=== PATIENT | male | born 1995 | race Caucasian/White ===

== ENCOUNTER 2017-09-21 09:15 | Emergency (ER) | payer BC, OTHER ==
[~2017-09-21] VITALS: Ht 180.3 cm; Wt 71.8 kg
[2017-09-21] MEDS ORDERED: ONDANSETRON 4MG/2ML VIAL (J2405) IV ONE (10:00)
[2017-09-21] MEDS ORDERED: NS 1,000 ML IV ONE (10:00)
[2017-09-21 12:03] LABS: CONTROL LINE MONO INT CTR LINE PRESENT
[2017-09-21] MEDS ORDERED: ONDA4TAB6 PO (12:08)
[2017-09-21 12:28] VITALS: BP 111/87
== END 2017-09-21 12:31 | disposition home or self-care (01) ==
LOC: M ED 09:15
DX: J06.9 Acute upper respiratory infection, unspecified (principal); B34.9 Viral infection, unspecified; Z77.098 Contact with and (suspected) exposure to other hazardous, chiefly nonmedicinal, chemicals
CPT/HCPCS: 86308; 87804; 87880; 96361; 96374; 99284; J2405

== ENCOUNTER 2018-05-21 12:45 | Day surgery (SDC) | payer BC ==
[2018-05-21] MEDS: ONDANSETRON 4MG/2ML VIAL (J2405) IV (13:57)
[2018-05-21] MEDS: MORPHINE 4 MG/ML 1ML VIAL/SYRINGE (J2270) IV (13:58)
[2018-05-21] MEDS: BUPIVACAINE/EPIN 0.25% 30 ML VIAL As Ordered (16:36)
[2018-05-21] MEDS ORDERED: GLYCOPYRROLATE INJ 0.2 MG/ML 2 ML VIAL As Ordered ×2 (18:03→18:35)
[2018-05-21] MEDS: ceFAZolin 2 GM/D5W 50 ML IV BAG (J0690 PER 500MG) As Ordered (18:10)
[2018-05-21] MEDS ORDERED: METOCLOPRAMIDE INJ 10MG/2ML VIAL (J2765) As Ordered (18:35)
[2018-05-21] MEDS ORDERED: fentaNYL 250 MCG/5 ML INJECTION (J3010) As Ordered (18:35)
[2018-05-21] MEDS ORDERED: NEOSTIGMINE 10 MG/10 ML VIAL (J2710) As Ordered (18:35)
[2018-05-21] MEDS ORDERED: dexameTHASONE 4 MG/ML 1ML VIAL (J1100) As Ordered (18:35)
[2018-05-21] MEDS ORDERED: MIDAZOLAM INJ 2 MG/2 ML VIAL (J2250) As Ordered (18:35)
[2018-05-21] MEDS ORDERED: ONDANSETRON 4MG/2ML VIAL (J2405) As Ordered (18:35)
[2018-05-21] MEDS ORDERED: ROCURONIUM BROMIDE 50 MG/5 ML VIAL As Ordered (18:35)
[2018-05-21] MEDS ORDERED: PROPOFOL 200 MG/20 ML VIAL As Ordered (18:35)
[2018-05-21] MEDS ORDERED: LIDOCAINE 2% INJ 100 MG/5 ML SDV (FOR ANES.) As Ordered (18:35)
[2018-05-21] MEDS: LIDOCAINE 1% MDV 20ML VIAL As Ordered (18:50)
[2018-05-21] MEDS: MUPIROCIN 2% OINT 22 GM TUBE As Ordered (18:55)
[2018-05-21] MEDS: LR 1,000 ML IV (19:45)
[2018-05-21] MEDS ORDERED: PERCOCET 5MG/325MG TAB PO (19:45)
[2018-05-21] MEDS ORDERED: fentaNYL 100 MCG/2 ML INJECTION (J3010) IV (19:45)
[2018-05-21] MEDS ORDERED: ONDANSETRON 4MG/2ML VIAL (J2405) IV (19:45)
[2018-05-21] MEDS: PERCOCET 5MG/325MG TAB PO (19:55)
[2018-05-21] MEDS: BACTRIM 160MG/800MG DS TAB PO (22:55)
[2018-05-22] MEDS: PERCOCET 5MG/325MG TAB PO ×2 (00:29→08:23)
[2018-05-22] MEDS: BACTRIM 160MG/800MG DS TAB PO (08:22)
[2018-05-22 09:45] LABS: HEPATITIS B SURFACE ANTIBODY POSITIVE (POSITIVE)
[2018-05-22 09:55] LABS: HEPATITIS B SURFACE ANTIGEN NEGATIVE (NEGATIVE)
[2018-05-22 10:22] LABS: HIV 1&2 SCREEN CENTAUR NEGATIVE (NEGATIVE)
[2018-05-22 10:22] LABS: HEPATITIS C VIRUS ABY INDEX 0.3 INDEX (<0.8)
== END 2018-05-22 09:25 | disposition home or self-care (01) ==
LOC: M SDC 05-22 09:25 → M ED 12:45 → M SDC 14:00 → M MSPAV 20:19
DX: S39.848A Other specified injuries of external genitals, initial encounter (principal); S30.22XA Contusion of scrotum and testes, initial encounter; X58.XXXA Exposure to other specified factors, initial encounter; Y92.89 Other specified places as the place of occurrence of the external cause; Y93.89 Activity, other specified; Y99.8 Other external cause status; Z87.891 Personal history of nicotine dependence; S62.91XA Unspecified fracture of right hand, initial encounter for closed fracture
CPT/HCPCS: 54700